=== PATIENT | female | born 1980 | race American Indian/Alaskan Native ===

== ENCOUNTER 2017-04-30 23:37 | Inpatient (IN) | payer SELFPAY ==
--- NOTE | 2017-05-01 00:13 | Emergency Department Report ---
HPI - General Chief Complaint: Altered Mental Status Time Seen by Provider: 05/01/17 00:07 - HPI HPI: This is a 37 year-old female presents to the emergency department by EMS from home with some altered mental status. The patient was drinking vodka and allegedly had 2 drinks when she went into the bathroom and locked herself in. Apparently she was heard vomiting and family tried to get in but it was locked. When they were finally able to get into the bathroom she was unconscious on the floor. The patient's son is currently bedside and says that she is not a known alcoholic, that she does not have any known past medical history, and that she has not been known to use any illicit drugs. EMS says that the patient has been going in and out of consciousness since they picked her up and therefore has been a poor historian. ED Past Medical Hx - Past Medical History Previous Medical History?: Yes Additional medical history: spine issues - Surgical History Additional Surgical History: ovaries removed - Social History Smoking Status: Current Every Day Smoker Substance Use Type: Alcohol, Marijuana ED Review of Systems ROS: Stated complaint: N/V Other details as noted in HPI Comment: Unobtainable due to pts medical conditions Physical Exam - Physical Exam Physical Exam: GENERAL: The patient is well-developed well-nourished. HENT: Normocephalic. Atraumatic. Patient has moist mucous membranes. EYES: Pupils equal reactive to light bilaterally. NECK: Supple. Trachea is midline. CHEST/LUNGS: Clear to auscultation. There is no respiratory distress noted. HEART/CARDIOVASCULAR: Regular. There is no tachycardia. There is no gallop rub or murmur. ABDOMEN: Abdomen is soft, nontender. Patient has normal bowel sounds. There is no abdominal distention. SKIN: Skin is warm and dry. NEURO: The patient is unresponsive. She will withdraw from painful stimuli. She is nonverbal and does not follow any commands. There is a gag reflex. Sometimes she will open her eyes to painful stimuli but goes back to sleep if not continuously stimulated. MUSCULOSKELETAL: There is no tenderness or deformity. There is no evidence of acute injury. ED Medical Decision Making - Lab Data Result diagrams: 05/01/17 00:25 05/01/17 00:25 - EKG Data -: EKG Interpreted by Me EKG shows normal: sinus rhythm, axis, intervals, QRS complexes, ST-T waves Rate: normal - EKG Data When compared to previous EKG there are: previous EKG unavailable Interpretation: normal EKG - Radiology Data Radiology results: image reviewed interpreted by me: Chest x-ray does not show any acute process. There are no pleural effusions, obvious pneumonia and there is no pneumothorax. PROCEDURE: CT HEAD/BRAIN WO CON TECHNIQUE: Computerized tomography of the head was performed without contrast material. HISTORY: AMS COMPARISON: No prior studies are available for comparison. FINDINGS: Skull and scalp: Normal. Paranasal sinuses: Normal. Ventricles and subarachnoid spaces: Normal. Cerebrum: No evidence of hemorrhage, acute infarction or mass . Cerebellum and brainstem: No evidence of hemorrhage, acute infarction or mass. Vasculature: Normal. Comments: None. IMPRESSION: Normal Examination Transcribed By: CO Dictated By: TOMMIE AVILA MD Electronically Authenticated By: TOMMIE AVILA MD Signed Date/Time: 04/30/17 9916 - Medical Decision Making Patient originally came in after being unresponsive at home in the bathroom after some nausea and vomiting. There was some alleged consumption of vodka and the patient does have a blood alcohol level of 0.07 here, but this does not appear to be a high enough level to cause this kind of altered mental status. CT of the head does not show any bleed, shift, mass or any acute process. The patient was found to have a 28,000 white count. Vital signs are stable including being afebrile. She has a mild urinary tract infection with 14 white blood cells in the urine. She was treated empirically with Zosyn. She was reevaluated multiple times of her multiple hours and is showing some signs of improvement. She has now much more easily arousable and once awake she is AAO [address] and time. However she is unable to tell me what happened prior to presentation and does not know how she got to the emergency department. For all these reasons, the patient will be admitted to the hospital for further evaluation and treatment and has been accepted for admission by the hospitalist, Dr Montesinos, who has asked me to place bridging orders to the medical surgical floor. - Differential Diagnosis CVA, TIA, alcohol intoxication, drug abuse, sepsis Critical Care Time: No Critical care attestation.: If time is entered above; I have spent that time in minutes in the direct care of this critically ill patient, excluding procedure time. ED Disposition Clinical Impression: Alcohol abuse Altered mental status Qualifiers: Altered mental status type: unspecified Qualified Code(s): R41.82 - Altered mental status, unspecified Leukocytosis Qualifiers: Leukocytosis type: unspecified Qualified Code(s): D72.829 - Elevated white blood cell count, unspecified UTI (urinary tract infection) Qualifiers: Urinary tract infection type: acute cystitis Hematuria presence: without hematuria Qualified Code(s): N30.00 - Acute cystitis without hematuria Disposition: 09 OP ADMIT IP TO THIS HOSP Is pt being admited?: Yes Condition: Fair Time of Disposition: 03:11
[2017-05-01 00:44] LABS: Hematocrit 45.9 % (30.3-42.9); Hemoglobin 14.6 gm/dl (10.1-14.3); Mean Corpuscular HGB Conc 32 % (30-34); Mean Corpuscular Hemoglobin 30 pg (28-32); Mean Corpuscular Volume 93 fl (79-97); Platelet Count 255 K/mm3 (140-440); Red Blood Count 4.93 M/mm3 (3.65-5.03); Red Cell Distribution Width 13.7 % (13.2-15.2); White Blood Count 27.9 K/mm3 (4.5-11.0)
[2017-05-01 01:04] LABS: Alanine Aminotransferase 15 units/L (7-56); Albumin 4.4 g/dL (3.9-5); Albumin/Globulin Ratio 1.3 %; Alkaline Phosphatase 71 units/L (35-129); Anion Gap 22 mmol/L; BUN/Creatinine Ratio 14; Blood Urea Nitrogen 10 mg/dL (7-17); Calcium 9.1 mg/dL (8.4-10.2); Carbon Dioxide 19 mmol/L (22-30); Chloride 101.4 mmol/L (98-107); Glucose 88 mg/dL (65-100); Potassium 4.1 mmol/L (3.6-5.0); Sodium 138 mmol/L (137-145); Total Protein 7.8 g/dL (6.3-8.2)
[2017-05-01 01:35] LABS: Urine Drugs of Abuse Note Disclamer
[2017-05-01 02:02] LABS: Bilirubin,Urine NEG (Negative); Blood,Urine NEG (Negative); Ketones,Urine NEG (Negative); Leukocyte Esterase,Urine SM (Negative); Mucus,Urine 3+ /HPF; Nitrite,Urine NEG (Negative); Protein,Urine <15 mg/dL mg/dL (Negative)
[2017-05-01] MEDS ORDERED: ZOSYN/NS 4.5GM/100ML 4.5 GM/100 ML VIAL IV ONE (02:10)
--- NOTE | 2017-05-01 02:52 | Cat Scan Report ---
FINAL REPORT PROCEDURE: CT HEAD/BRAIN WO CON TECHNIQUE: Computerized tomography of the head was performed without contrast material. HISTORY: AMS COMPARISON: No prior studies are available for comparison. FINDINGS: Skull and scalp: Normal. Paranasal sinuses: Normal. Ventricles and subarachnoid spaces: Normal. Cerebrum: No evidence of hemorrhage, acute infarction or mass . Cerebellum and brainstem: No evidence of hemorrhage, acute infarction or mass. Vasculature: Normal. Comments: None. IMPRESSION: Normal Examination
[2017-05-01 04:00] LABS: Anisocytosis 1+; Basophils % (Manual) 0 % (0.0-1.8); Blastocytes % (Manual) 0 %; Diff Status Complete; Hypersegmented Neutrophils Few; Hypochromasia Few; Large Platelets Rare
--- NOTE | 2017-05-01 04:45 | History and Physical Report ---
History of Present Illness Date of examination: 05/01/17 Date of admission: 05/01/17 03:13 Chief complaint: Altered Mental status History of present illness: 37-year-old -[place] female with no significant past medical history was brought to the emergency department for the compliants of altered mental status. Patient said she didn't know what happens and she found out herself Hospital. Patient said she passed out maybe around 10 PM I don't know exactly what time. She said no fever nor chills, didn't have any abnormal body movements. A shunt state she drinks 2 shots of vodka, and she smoked marijuana. CT head was done and negative. REVIEW OF SYSTEMS: GENERAL: no weight change, no fatigue, no fever HEAD: no head ache EYES: no blurry vision, no acute visual loss EARS: no hearing loss, no discharge, no earache NOSE: no stuffiness, no sneezing, no discharge MOUTH, THROAT AND NECK: no bleeding gums, no sore throat, no swollen neck CARDIAC: no palpitations, no dyspnea on exertion, no orthopnea, no PND, no edema , no chest pain RESPIRATORY: no shortness of breath, no wheeze, no cough, no sputum, no hemoptysis, no asthma GI: no decreased appetite, no nausea, no vomiting, no dysphagia, no diarrhea, no constipation, no abdominal pain URINARY: no change in frequency, no urgency, no polyuria, no hematuria, no incontinence MUSCULOSKELETAL: no muscle weakness, no pain, no joint stiffness NEUROLOGIC: no loss of sensation/numbness, no tingling, no tremors, no weakness/ paralysis HEMATOLOGIC: no anemia, no easy bruising SKIN: no rashes ENDOCRINE: no heat/cold intolerance, no polyuria, no polydipsia, no thyroid problems, no diabetes PSYCHIATRIC: no anxiety, no depression, no suicidal ideations Past History Past Medical History: No medical history Past Surgical History: Social history: smoking (one pack per day, marijuana), alcohol abuse (one to 2 drinks occasionally), full code. denies: prescription drug abuse, IV drug use Family history: no significant family history Medications and Allergies Allergies Allergy/AdvReac Type Severity Reaction Status Date / Time No Known Allergies Allergy Unverified 04/30/17 23:55 Home Medications Medication Instructions Recorded Confirmed Last Taken Type No Known Home Medications [No 05/01/17 05/01/17 Unknown History Reported Home Medications] Active Meds: Active Medications Heparin Sodium (Porcine) (Heparin) 5,000 unit SUB-Q Q8HR JAIME Piperacillin Sod/Tazobactam Sod (Zosyn/Ns 4.5gm/100ml) 4.5 gm in 100 mls @ 200 mls/hr IV Q6H JAIME PRN Reason: Protocol Sodium Chloride (Nacl 0.9% 1000 Ml) 1,000 mls @ 75 mls/hr IV DIRECT JAIME Exam - Physical Exam Narrative exam: Not in cardiopulmonary distress. The patient is obese. Vital signs as documented. Head exam is unremarkable. No scleral icterus . Neck is without jugular venous distension, thyromegaly, or carotid bruits. Lungs are clear to auscultation. Cardiac exam reveals regular rate and Rhythm. First and second heart sounds normal. No murmurs, rubs or gallops. Abdominal exam reveals normal bowel sounds, no masses, no organomegaly and no aortic enlargement. Extremities are nonedematous and both femoral and pedal pulses are normal. MARINE FITTER: Alert and oriented 3. No focal weakness. - Constitutional Vitals: Temp Pulse Resp BP Pulse Ox 97.7 F 79 17 149/88 100 05/01/17 00:15 05/01/17 00:15 05/01/17 00:15 05/01/17 00:15 05/01/17 00:15 Results - Labs CBC & Chem 7: 05/01/17 00:25 05/01/17 00:25 Labs: Laboratory Last Values WBC 27.9 K/mm3 (4.5-11.0) H 05/01/17 00:25 RBC 4.93 M/mm3 (3.65-5.03) 05/01/17 00:25 Hgb 14.6 gm/dl (10.1-14.3) H 05/01/17 00:25 Hct 45.9 % (30.3-42.9) H 05/01/17 00:25 MCV 93 fl (79-97) 05/01/17 00:25 MCH 30 pg (28-32) 05/01/17 00:25 MCHC 32 % (30-34) 05/01/17 00:25 RDW 13.7 % (13.2-15.2) 05/01/17 00:25 Plt Count 255 K/mm3 (140-440) 05/01/17 00:25 Add Manual Diff Complete 05/01/17 00:25 Total Counted 100 05/01/17 00:25 Seg Neuts % (Manual) 66.0 % (40.0-70.0) 05/01/17 00:25 Band Neutrophils % 12.0 % 05/01/17 00:25 Lymphocytes % (Manual) 13.0 % (13.4-35.0) L 05/01/17 00:25 Reactive Lymphs % (Man) 0 % 05/01/17 00:25 Monocytes % (Manual) 6.0 % (0.0-7.3) 05/01/17 00:25 Eosinophils % (Manual) 3.0 % (0.0-4.3) 05/01/17 00:25 Basophils % (Manual) 0 % (0.0-1.8) 05/01/17 00:25 Metamyelocytes % 0 % 05/01/17 00:25 Myelocytes % 0 % 05/01/17 00:25 Promyelocytes % 0 % 05/01/17 00:25 Blast Cells % 0 % 05/01/17 00:25 Nucleated RBC % Not Reportable 05/01/17 00:25 Seg Neutrophils # Man 18.4 K/mm3 (1.8-7.7) H 05/01/17 00:25 Band Neutrophils # 3.3 K/mm3 05/01/17 00:25 Lymphocytes # (Manual) 3.6 K/mm3 (1.2-5.4) 05/01/17 00:25 Abs React Lymphs (Man) 0.0 K/mm3 05/01/17 00:25 Monocytes # (Manual) 1.7 K/mm3 (0.0-0.8) H 05/01/17 00:25 Eosinophils # (Manual) 0.8 K/mm3 (0.0-0.4) H 05/01/17 00:25 Basophils # (Manual) 0.0 K/mm3 (0.0-0.1) 05/01/17 00:25 Metamyelocytes # 0.0 K/mm3 05/01/17 00:25 Myelocytes # 0.0 K/mm3 05/01/17 00:25 Promyelocytes # 0.0 K/mm3 05/01/17 00:25 Blast Cells # 0.0 K/mm3 05/01/17 00:25 WBC Morphology Not Reportable 05/01/17 00:25 Hypersegmented Neuts Few 05/01/17 00:25 Hyposegmented Neuts Not Reportable 05/01/17 00:25 Hypogranular Neuts Not Reportable 05/01/17 00:25 Smudge Cells Not Reportable 05/01/17 00:25 Toxic Granulation Not Reportable 05/01/17 00:25 Toxic Vacuolation Not Reportable 05/01/17 00:25 Dohle Bodies Not Reportable 05/01/17 00:25 Pelger-Huet Anomaly Not Reportable 05/01/17 00:25 Sis Rods Not Reportable 05/01/17 00:25 Platelet Estimate Not Reportable 05/01/17 00:25 Clumped Platelets Not Reportable 05/01/17 00:25 Plt Clumps, EDTA Not Reportable 05/01/17 00:25 Large Platelets Rare 05/01/17 00:25 Giant Platelets Not Reportable 05/01/17 00:25 Platelet Satelliting Not Reportable 05/01/17 00:25 Plt Morphology Comment Not Reportable 05/01/17 00:25 RBC Morphology Not Reportable 05/01/17 00:25 Dimorphic RBCs Not Reportable 05/01/17 00:25 Polychromasia Not Reportable 05/01/17 00:25 Hypochromasia Few 05/01/17 00:25 Poikilocytosis Not Reportable 05/01/17 00:25 Anisocytosis 1+ 05/01/17 00:25 Microcytosis Not Reportable 05/01/17 00:25 Macrocytosis Not Reportable 05/01/17 00:25 Spherocytes Not Reportable 05/01/17 00:25 Pappenheimer Bodies Not Reportable 05/01/17 00:25 Sickle Cells Not Reportable 05/01/17 00:25 Target Cells Not Reportable 05/01/17 00:25 Tear Drop Cells Not Reportable 05/01/17 00:25 Ovalocytes Not Reportable 05/01/17 00:25 Helmet Cells Not Reportable 05/01/17 00:25 [place] Bodies Not Reportable 05/01/17 00:25 Morton Rings Not Reportable 05/01/17 00:25 [place] Cells Not Reportable 05/01/17 00:25 Bite Cells Not Reportable 05/01/17 00:25 Crenated Cell Not Reportable 05/01/17 00:25 Elliptocytes Not Reportable 05/01/17 00:25 Acanthocytes (Spur) Not Reportable 05/01/17 00:25 Rouleaux Not Reportable 05/01/17 00:25 Hemoglobin C Crystals Not Reportable 05/01/17 00:25 Schistocytes Not Reportable 05/01/17 00:25 Malaria parasites Not Reportable 05/01/17 00:25 Keith Bodies Not Reportable 05/01/17 00:25 Hem Pathologist Commnt No 05/01/17 00:25 Sodium 138 mmol/L (137-145) 05/01/17 00:25 Potassium 4.1 mmol/L (3.6-5.0) 05/01/17 00:25 Chloride 101.4 mmol/L (98-107) 05/01/17 00:25 Carbon Dioxide 19 mmol/L (22-30) L 05/01/17 00:25 Anion Gap 22 mmol/L 05/01/17 00:25 BUN 10 mg/dL (7-17) 05/01/17 00:25 Creatinine 0.7 mg/dL (0.7-1.2) 05/01/17 00:25 Estimated GFR > 60 ml/min 05/01/17 00:25 BUN/Creatinine Ratio 14 % 05/01/17 00:25 Glucose 88 mg/dL (65-100) 05/01/17 00:25 Lactic Acid 2.10 mmol/L (0.7-2.0) H* 05/01/17 Unknown Calcium 9.1 mg/dL (8.4-10.2) 05/01/17 00:25 Magnesium 2.20 mg/dL (1.7-2.3) 05/01/17 00:25 Total Bilirubin 0.20 mg/dL (0.1-1.2) 05/01/17 00:25 AST 18 units/L (5-40) 05/01/17 00:25 ALT 15 units/L (7-56) 05/01/17 00:25 Alkaline Phosphatase 71 units/L (35-129) 05/01/17 00:25 Total Protein 7.8 g/dL (6.3-8.2) 05/01/17 00:25 Albumin 4.4 g/dL (3.9-5) 05/01/17 00:25 Albumin/Globulin Ratio 1.3 % 05/01/17 00:25 TSH 0.340 mlU/mL (0.270-4.200) 05/01/17 00:25 HCG, Qual Negative (Negative) 05/01/17 00:25 Urine Color Yellow (Yellow) 05/01/17 01:33 Urine Turbidity Clear (Clear) 05/01/17 01:33 Urine pH 5.0 (5.0-7.0) 05/01/17 01:33 Ur Specific [place] 1.025 (1.003-1.030) 05/01/17 01:33 Urine Protein <15 mg/dl mg/dL (Negative) 05/01/17 01:33 Urine Glucose (UA) Neg mg/dL (Negative) 05/01/17 01:33 Urine Ketones Neg mg/dL (Negative) 05/01/17 01:33 Urine Blood Neg (Negative) 05/01/17 01:33 Urine Nitrite Neg (Negative) 05/01/17 01:33 Urine Bilirubin Neg (Negative) 05/01/17 01:33 Urine Urobilinogen 2.0 mg/dL (<2.0) 05/01/17 01:33 Ur Leukocyte Esterase Sm (Negative) 05/01/17 01:33 Urine WBC (Auto) 14.0 /HPF (0.0-6.0) H 05/01/17 01:33 Urine RBC (Auto) 2.0 /HPF (0.0-6.0) 05/01/17 01:33 U Epithel Cells (Auto) 6.0 /HPF (0-13.0) 05/01/17 01:33 Urine Mucus 3+ /HPF 05/01/17 01:33 Salicylates < 0.3 mg/dL (2.8-20.0) L 05/01/17 00:25 Urine Opiates Screen Presumptive negative 05/01/17 01:33 Urine Methadone Screen Presumptive negative 05/01/17 01:33 Acetaminophen < 15.0 ug/mL (10.0-30.0) 05/01/17 00:25 Ur Barbiturates Screen Presumptive negative 05/01/17 01:33 Ur Phencyclidine Scrn Presumptive negative 05/01/17 01:33 Ur Amphetamines Screen Presumptive negative 05/01/17 01:33 U Benzodiazepines Scrn Presumptive negative 05/01/17 01:33 Urine Cocaine Screen Presumptive negative 05/01/17 01:33 U Marijuana (THC) Screen Presumptive positive 05/01/17 01:33 Drugs of Abuse Note Disclamer 05/01/17 01:33 Plasma/Serum Alcohol 0.07 gm% (0-0.07) 05/01/17 00:25 Assessment and Plan Assessment and plan: Metabolic encephalopathy Sepsis secondary to UTI Lactic acidosis Leukocytosis - Patient is on IV Zosyn - IV fluids DVT prophylaxis - Heparin Disposition - Admit to medical floor Advance Directives: Yes VTE prophylaxis?: Chemical Plan of care discussed with patient/family: Yes
[2017-05-01] MEDS ORDERED: NACL 0.9% 1000 ML 1,000 ML IV SCH (05:00)
[2017-05-01] MEDS: HEPARIN SUB-Q SCH ×3 (06:21→13:47)
--- NOTE | 2017-05-01 09:48 | XRay Report ---
AP CHEST: HISTORY: chest pain AP view of the chest demonstrates a normal mediastinal and cardiac contour with clear lungs and normal bony and soft tissue structures. IMPRESSION: Unremarkable AP chest.
[2017-05-01] MEDS: ZOSYN/NS 4.5GM/100ML 4.5 GM/100 ML VIAL IV SCH ×3 (11:08→21:08)
[2017-05-02] MEDS: HEPARIN SUB-Q SCH ×3 (00:36→14:24)
[2017-05-02] MEDS: ZOSYN/NS 4.5GM/100ML 4.5 GM/100 ML VIAL IV SCH ×3 (02:22→14:23)
[2017-05-02 06:32] LABS: Hematocrit 36.4 % (30.3-42.9); Hemoglobin 12.3 gm/dl (10.1-14.3); Mean Corpuscular HGB Conc 34 % (30-34); Mean Corpuscular Hemoglobin 32 pg (28-32); Mean Corpuscular Volume 93 fl (79-97); Platelet Count 209 K/mm3 (140-440); Red Cell Distribution Width 13.8 % (13.2-15.2); White Blood Count 9.8 K/mm3 (4.5-11.0)
[2017-05-02 06:44] LABS: Anion Gap 18 mmol/L; BUN/Creatinine Ratio 15; Blood Urea Nitrogen 12 mg/dL (7-17); Calcium 8.2 mg/dL (8.4-10.2); Carbon Dioxide 21 mmol/L (22-30); Chloride 108.2 mmol/L (98-107); Glucose 118 mg/dL (65-100); Potassium 3.9 mmol/L (3.6-5.0); Sodium 143 mmol/L (137-145)
[2017-05-02 07:55] LABS: Anisocytosis 1+; Basophils % (Manual) 0 % (0.0-1.8); Blastocytes % (Manual) 0 %; Diff Status Complete; Platelet Estimate Cons
[2017-05-02 09:02] VITALS: BP 117/57
--- NOTE | 2017-05-02 11:48 | Discharge Summary ---
Providers - Providers Date of Admission: 05/01/17 03:13 Date of discharge: 05/02/17 Attending physician: CAMILO AYALA Primary care physician: ANNITA AMDAOR MD Hospitalization Condition: Fair Hospital course: 37-year-old -[place] female with no significant past medical history was brought to the emergency department for the compliants of altered mental status. Patient said she didn't know what happens and she found out herself Hospital. Patient said she passed out maybe around 10 PM I don't know exactly what time. She said no fever nor chills, didn't have any abnormal body movements. A shunt state she drinks 2 shots of vodka, and she smoked marijuana. CT head was done and negative. She noted to have UTI and treated with antibiotics. Discharge diagnosis: Acute toxic encephalopathy, resolved Sepsis secondary to UTI UTI, responded to abx, cx obtained after giving abx Lactic acidosis, due to sepsis Leukocytosis, due to UTI, resolved DVT prophylaxis, placed on Heparin Disposition: DC- TO HOME OR SELFCARE Time spent for discharge: 32 minutes Core Measure Documentation - Palliative Care Palliative Care/ Comfort Measures: Not Applicable - Core Measures Any of the following diagnoses?: none Exam - Constitutional Vitals: Temp Pulse Resp BP Pulse Ox 98.2 F 67 16 117/57 100 05/02/17 07:57 05/02/17 07:57 05/02/17 07:57 05/02/17 07:57 05/02/17 07:57 General appearance: Present: no acute distress, well-nourished - EENT Eyes: Present: PERRL ENT: hearing intact, clear oral mucosa - Neck Neck: Present: supple, normal ROM - Respiratory Respiratory effort: normal Respiratory: bilateral: CTA - Cardiovascular Heart Sounds: Present: S1 & S2. Absent: rub, click - Extremities Extremities: pulses symmetrical, No edema Peripheral Pulses: within normal limits - Abdominal General gastrointestinal: Present: soft, non-tender, non-distended, normal bowel sounds - Integumentary Integumentary: Present: clear, warm, dry - Musculoskeletal Musculoskeletal: gait normal, strength equal bilaterally - Psychiatric Psychiatric: appropriate mood/affect, intact judgment & insight - Neurologic Neurologic: CNII-XII intact, moves all extremities Plan Activity: advance as tolerated Weight Bearing Status: Weight Bear as Tolerated Diet: regular Follow up with: PRIMARY CARE, [Primary Care Provider] - 3-5 Days Prescriptions: Levofloxacin [Levaquin] 750 mg PO QDAY #5 tablet
== END 2017-05-02 15:00 | disposition home or self-care (01) | DRG 871 ==
LOC: ED 23:37 → 3A 05-01 03:13
PROVIDERS: ADMIT Internal Medicine; ATTEND Internal Medicine
DX: A41.9 Sepsis, unspecified organism (principal); G92 Toxic encephalopathy; N39.0 Urinary tract infection, site not specified; F10.10 Alcohol abuse, uncomplicated; F17.200 Nicotine dependence, unspecified, uncomplicated; F12.90 Cannabis use, unspecified, uncomplicated
CPT/HCPCS: 36415; 70450; 71010; 80048; 80053; 80307; 80320; 81001; 82140; 83735; 84443; 84703; 85007; 85025; 87040; 87086; 93005; 93010; 96365; G0480; J1644; J2543; J7030